=== PATIENT | female | born 1970 | race Caucasian/White ===

== ENCOUNTER 2017-08-31 10:04 | Emergency (ER) | payer OTHER ==
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
[2017-08-31] MEDS ORDERED: DEXAMETHASONE SOD PHOS INJ 10 MG/1 ML VIAL IM ONE (11:33)
[2017-08-31] MEDS ORDERED: KETOROLAC TROMETHAMINE 60 MG/2 ML SDV IM ONE (11:33)
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
[2017-08-31 11:57] VITALS: BP 123/70
== END 2017-08-31 12:15 | disposition home or self-care (01) ==
LOC: ER 10:04
DX: M25.562 Pain in left knee (principal); M54.42 Lumbago with sciatica, left side; V40.5XXA Car driver injured in collision with pedestrian or animal in traffic accident, initial encounter; F17.210 Nicotine dependence, cigarettes, uncomplicated; Z71.6 Tobacco abuse counseling; Z88.0 Allergy status to penicillin; Z88.2 Allergy status to sulfonamides
CPT/HCPCS: 99283; 96372; 73562; 72110; J1885; J1100